=== PATIENT | male | born 1945 | race Caucasian/White ===

== ENCOUNTER 2024-05-29 11:42 | Emergency (ER) | payer OTHER, SELFPAY ==
[2024-05-29 11:43] VITALS: BP 166/84
--- NOTE | 2024-05-29 12:32 | ED.GENMED ---
History of Present Illness
<Fany Jack PA-C - Last Filed: 05/29/24 18:11>
General
Chief Complaint: Fall
Source: patient
Time Seen by Provider: 05/29/24 12:23
History of Present Illness
History of Present Illness:
79yoM with a history of type 2 diabetes presenting for evaluation after a fall. Patient was getting up from a chair this morning around 2 AM when he lost his balance. Patient fell on his right side onto a table injuring his ribs. He denies any
head strike or loss of consciousness. Patient's only current complaint is right lower rib pain that worsens with breathing. He has taken Aleve without much improvement. He denies any headache, neck pain, abdominal pain, back pain. He is not
taking any blood thinners.
Phy Exam
<Fany Jack PA-C - Last Filed: 05/29/24 18:11>
Physical Exam
Physical Exam:
AIRWAY: Intact
BREATHING: Bilateral breath sounds present
CIRCULATION:2+ radial pulses bilaterally
DISABILITY: No focal deficits
General Physical Exam
General Presentation: well appearing and no apparent distress
General age: appears stated age
General Skin: warm and dry
General Habitus: normal
General Mental: alert
ENT Exam
ENT Exam: normocephalic (No external signs of head trauma)
Additional ENT: No cervical spine tenderness
Pulmonary Exam
Pulmonary Exam: lungs clear, no respiratory distress and other (Bilateral breath sounds. +R lower lateral and posterior rib tenderness. Abrasions noted to R flank. No crepitus. )
Gastrointestinal Exam
Gastrointestinal Exam: non tender, soft and non distended
Neurological Exam
Neurological Exam: alert
Snow Coma Scale
Eye Opening: Spontaneous
Verbal Response: Oriented
Motor Response: Obeys Commands
GCS Total Score: 15
Musculoskeletal Exam
Musculoskeletal Exam: other (No C/T/L spine tenderness)
Psychiatric Exam
Psychiatric Exam: normal mood/affect
Course
<Fany Jack PA-C - Last Filed: 05/29/24 18:11>
Orders/Labs/Results
Orders:
Orders
05/29/24 11:47
CR Ribs-right 3 Vw W/pa Chest* Urgent
Comment:
Reason For Exam: fall, pain over R ribs with SOB
05/29/24 12:30
CT Chest W/o Iv Contrast Urgent
Comment:
Reason For Exam: R rib pain s/p fall
05/29/24 12:45
Lidocaine [Lidocaine 4% Patch] 1 patch TOPICAL DAILY
Apply Lidocaine patch(s) to:: R ribcage
05/29/24 13:20
Chest/Abd/Pelvis w Contrast CT [CT Chest/abd/pel W Iv Cont] Urgent
Comment:
Reason For Exam: Perirenal hematoma, eval for active extravasation
05/29/24 13:28
0.9% Sodium Chloride 500 ml [Nss] 500 ml IV BOLUS
05/29/24 13:35
Complete Blood Count/With Diff Urgent
Comprehensive Metabolic Panel Urgent
PTT Urgent
Prothrombin Time Urgent
05/29/24 14:00
Cardiac Monitoring- Treatment ONCE
Abnormal Lab Results
05/29/24
13:35
WBC 11.2 H 10^3/uL
(4.8-10.8)
RBC 4.50 L 10^6/uL
(4.70-6.10)
Hct 38.4 L %
(39.0-52.0)
MPV 11.9 H fL
(7.4-10.4)
Abs Immat Gran (auto) 0.1 H 10^3/uL
(0-0.05)
Absolute Neuts (auto) 9.2 H 10^3/uL
(1.4-6.5)
Absolute Lymphs (auto) 0.8 L 10^3/uL
(1.2-3.4)
Absolute Monos (auto) 1.1 H 10^3/uL
(0.1-0.6)
Neutrophils % 82.3 H %
(42.2-75.2)
Lymphocytes % 7.4 L %
(20.5-51.1)
Monocytes % 9.4 H %
(1.7-9.3)
BUN 37 H mg/dl
(9-20)
Creatinine 1.7 H mg/dL
(0.7-1.3)
Glucose 144 H mg/dl
(70-99)
Total Bilirubin 1.4 H mg/dl
(0.2-1.3)
AST 64 H U/L
(17-59)
ALT 52 H U/L
(0-50)
05/29/24 13:35
05/29/24 13:35
Vital Signs
Initial and Last Documented VS:
Initial Vital Signs
Temp Pulse Resp BP Pulse Ox
99.0 F 80 18 166/84 98
05/29/24 11:43 05/29/24 11:43 05/29/24 11:43 05/29/24 11:43 05/29/24 11:43
Last Documented Vital Signs
Temp Pulse Resp BP Pulse Ox
99.0 F 75 17 155/77 96
05/29/24 11:43 05/29/24 16:00 05/29/24 16:00 05/29/24 16:00 05/29/24 16:00
Wolfganglt;Hector Trujillo DO - Last Filed: 05/29/24 14:21>
Orders/Labs/Results
Orders:
Orders
05/29/24 11:47
CR Ribs-right 3 Vw W/pa Chest* Urgent
Comment:
Reason For Exam: fall, pain over R ribs with SOB
05/29/24 12:30
CT Chest W/o Iv Contrast Urgent
Comment:
Reason For Exam: R rib pain s/p fall
05/29/24 12:45
Lidocaine [Lidocaine 4% Patch] 1 patch TOPICAL DAILY
Apply Lidocaine patch(s) to:: R ribcage
05/29/24 13:20
Chest/Abd/Pelvis w Contrast CT [CT Chest/abd/pel W Iv Cont] Urgent
Comment:
Reason For Exam: Perirenal hematoma, eval for active extravasation
05/29/24 13:28
0.9% Sodium Chloride 500 ml [Nss] 500 ml IV BOLUS
05/29/24 13:35
Complete Blood Count/With Diff Urgent
Comprehensive Metabolic Panel Urgent
PTT Urgent
Prothrombin Time Urgent
05/29/24 14:00
Cardiac Monitoring- Treatment ONCE
Abnormal Lab Results
05/29/24
13:35
WBC 11.2 H 10^3/uL
(4.8-10.8)
RBC 4.50 L 10^6/uL
(4.70-6.10)
Hct 38.4 L %
(39.0-52.0)
MPV 11.9 H fL
(7.4-10.4)
Abs Immat Gran (auto) 0.1 H 10^3/uL
(0-0.05)
Absolute Neuts (auto) 9.2 H 10^3/uL
(1.4-6.5)
Absolute Lymphs (auto) 0.8 L 10^3/uL
(1.2-3.4)
Absolute Monos (auto) 1.1 H 10^3/uL
(0.1-0.6)
Neutrophils % 82.3 H %
(42.2-75.2)
Lymphocytes % 7.4 L %
(20.5-51.1)
Monocytes % 9.4 H %
(1.7-9.3)
BUN 37 H mg/dl
(9-20)
Creatinine 1.7 H mg/dL
(0.7-1.3)
Glucose 144 H mg/dl
(70-99)
Total Bilirubin 1.4 H mg/dl
(0.2-1.3)
AST 64 H U/L
(17-59)
ALT 52 H U/L
(0-50)
05/29/24 13:35
05/29/24 13:35
Vital Signs
Initial and Last Documented VS:
Initial Vital Signs
Temp Pulse Resp BP Pulse Ox
99.0 F 80 18 166/84 98
05/29/24 11:43 05/29/24 11:43 05/29/24 11:43 05/29/24 11:43 05/29/24 11:43
Last Documented Vital Signs
Temp Pulse Resp BP Pulse Ox
99.0 F 75 17 155/77 96
05/29/24 11:43 05/29/24 16:00 05/29/24 16:00 05/29/24 16:00 05/29/24 16:00
Wolfganglt;Fany Jack PA-C - Last Filed: 05/29/24 18:11>
MDM/Problems Addressed
Differential Diagnosis Includes:
79yoM here with R rib/flank pain after a fall at 2am this morning. Pain worse with bleeding. Patient is afebrile and hemodynamically stable. Oxygen saturation 98%. He has reproducible lower rib tenderness on exam with a small abrasion.
Bilateral breath sounds intact. Differential diagnosis includes but is not limited to: Rib fracture, pneumothorax, hemothorax
Initial ED plan: Rib series x-rays obtained in triage. No pneumothorax seen. Will obtain CT chest without contrast. Lidocaine patch for pain.
<Fany Jack PA-C - Last Filed: 05/29/24 18:11>
*Critical Care Note
Total Time (30-74mins, 75-104mins- exclusive of procedures): 35
<Fany Jack PA-C - Last Filed: 05/29/24 18:11>
Update Note
Update Note:
CT shows acute nondisplaced rib fractures of right 7th through 10th ribs. There is also a large acute right perirenal hematoma noted with a small amount of retroperitoneal hemorrhage superior to the kidney. IV access and labs obtained. Hemoglobin
stable at 13.2. CT chest abdomen pelvis with IV contrast ordered. No active extravasation on imaging. Case was discussed with [place] trauma surgeon, Dr. Lynch, who accepts patient in transfer. Patient transported via ALS. He left in stable
condition.
ED Attending Note
<Fany Jack PA-C - Last Filed: 05/29/24 18:11>
-
Portions of this chart may have been created with voice recognition software.� Occasional wrong word or��sound alike� substitutions may have occurred due to the inherent limitations of voice recognition software.
<Hector Trujillo DO - Last Filed: 05/29/24 14:21>
ED Attending Note
Patient seen and examined by attending physician: Yes
I performed the substantive portion of visit, reviewed & personally made and approve the management plan that is documented in note by myself or VIDHI.: Yes
ED Attending Note:
Patient is a 79-year-old male who presents to the emergency department with right rib pain after he stood out of a recliner and fell against a coffee table. Patient denies shortness of breath. Patient denies any head or neck injuries. Patient
denies any abdominal pain. Patient is tender along the right rib cage. CT was done which showed a perirenal hematoma on the right as well as 4 rib fractures. Patient states he was on metformin for a while but does not take any other medications.
Given the findings and patient's age patient will be transferred to a trauma center.
Discharge Plan
Departure
Patient Disposition: Acute Care Hospital
Date of Disposition: 05/29/24
Time of Disposition: 14:54
Discharge Problem:
Multiple rib fractures, Closed hematoma of right kidney
Referrals:
Caleb Luo DO [Family Provider] -
Hospital Transfer
Other hospital: [facility]
I certify that the patient requires transfer: Yes
Discussed case with accepting physician: Dr. Lynch
Reason for transfer: higher level of care, medical necessity and specialties available
Interventions
Interventions:
*Risk Screen - Suicide Last Done: 05/29/24 11:43
*General Assessment Last Done: 05/29/24 11:43
*Neglect/Abuse Screening Last Done: 05/29/24 11:43
ED- Fall Risk Assessment Last Done: 05/29/24 16:04
*ED COVID-19 Vaccine History Last Done: 05/29/24 11:43
*Nursing Disposition Last Done: 05/29/24 16:04
ED-Musculoskeletal Assessment Last Done: 05/29/24 12:36
ED- Neurological Assessment Last Done: 05/29/24 12:36
ED-Skin Assessment Last Done: 05/29/24 12:36
Discharge Date and Time
Discharge Date/Time: 05/29/24 16:08
Print Language: PASHTO
[2024-05-29] MEDS: LIDOCAINE 4% PATCH 1 PATCH TOPICAL (12:33)
[2024-05-29] MEDS: NSS 500 IV (13:38)
[2024-05-29 13:42] LABS: % Basophils 0.4 % (0-2); % Immature Granulocytes 0.5 % (0-0.5); % Lymphocytes 7.4 % (20.5-51.1); % Monocytes 9.4 % (1.7-9.3); % Neutrophils 82.3 % (42.2-75.2); Absolute Basophils 0.1 10^3/uL (0-0.2); Absolute Immature Granulocytes 0.1 10^3/uL (0-0.05); Absolute Lymphocytes 0.8 10^3/uL (1.2-3.4); Absolute Monocytes 1.1 10^3/uL (0.1-0.6); Absolute Neutrophils 9.2 10^3/uL (1.4-6.5); Hematocrit 38.4 % (39.0-52.0); Hemoglobin 13.2 g/dL (13.0-18.0); Mean Corp Hgb Conc. 34.4 g/dL (33.0-37.0); Mean Corpuscular Hgb 29.3 pg (27.0-31.0); Mean Corpuscular Volume 85.3 fL (80.0-94.0); Mean Platelet Volume 11.9 fL (7.4-10.4); Nucleated Red Blood Cells % 0 % (-); Platelet Count 164 10^3/uL (130-400); Red Cell Dist. Width 13.8 % (11.5-14.5); White Blood Cell Count 11.2 10^3/uL (4.8-10.8)
[2024-05-29 13:53] LABS: APTT 30.2 Sec (23.4-35.0); INR 1.06; PT 13.6 Sec (11.4-14.6)
[2024-05-29 13:55] LABS: ALT (SGPT) 52 U/L (0-50); AST (SGOT) 64 U/L (17-59); Albumin 4.5 g/dl (3.5-5.0); Alkaline Phosphatase 87 U/L (38-126); Blood Urea Nitrogen 37 mg/dl (9-20); Calcium 9.3 mg/dl (8.4-10.2); Carbon Dioxide 25 mmol/L (22-30); Chloride 102 mmol/L (98-107); Glucose 144 mg/dl (70-99); Sodium 141 mmol/L (135-145); Total Bilirubin 1.4 mg/dl (0.2-1.3); Total Protein 7.3 g/dl (6.3-8.2)
[2024-05-29 14:33] VITALS: BP 157/69
[2024-05-29 15:00] VITALS: BP 147/74
[2024-05-29 15:30] VITALS: BP 146/74
[2024-05-29 16:00] VITALS: BP 155/77
== END 2024-05-29 16:08 | disposition short-term general hospital (02) ==
LOC: EMR 11:42
PROVIDERS: Physician Assistant; EMERGENCY PHYSICIAN Emergency Medicine; FAMILY PHYSICIAN Family Medicine
DX: S22.41XA Multiple fractures of ribs, right side, initial encounter for closed fracture (principal); S37.011A Minor contusion of right kidney, initial encounter; W19.XXXA Unspecified fall, initial encounter; E11.9 Type 2 diabetes mellitus without complications; N40.1 Benign prostatic hyperplasia with lower urinary tract symptoms
CPT/HCPCS: 99284; 96360; 71101; 71250; 71260; 74177; 80053; 85025; 85610; 85730; Q9967